=== PATIENT | female | born 1945 | race Caucasian/White ===

== ENCOUNTER 2016-04-10 02:47 | Emergency (ER) | payer MEDICARE ==
[2010-06-17 07:19] VITALS: BMI 37.0
[2016-04-10 03:12] LABS: APPEARANCE CLEAR (CLEAR); BILIRUBIN NEGATIVE (NEGATIVE); COLOR YELLOW (YELLOW); GLUCOSE NEGATIVE (NEGATIVE); KETONE NEGATIVE (NEGATIVE); LEUKOCYTE ESTERASE NEGATIVE (NEGATIVE); NITRITE NEGATIVE (NEGATIVE); PROTEIN NEGATIVE (NEGATIVE); UROBILINOGEN NORMAL (NORMAL)
[2016-04-10 03:31] LABS: BASOPHILS 0.8 % (0.0-2.0); EOSINOPHILS 6.6 % (0-7); HEMATOCRIT 35.5 % (36.0-48.0); HEMOGLOBIN 11.3 g/dL (12-16); IMMATURE GRANULOCYTES 0.2 % (0-5); LYMPHOCYTES 39.6 % (15-50); MCH 27.3 pg (26.0-34.0); MCHC 31.8 g/dL (31.0-37.0); MCV 85.7 fL (80.0-100.0); MEAN PLATELET VOLUME 10.3 fL (7.4-10.4); MONOCYTES 5.2 % (2-11); NEUTROPHILS 47.6 % (40-80); PLATELET COUNT 295 10x3/uL (130-400); RBC 4.14 10x6/uL (4.00-5.40); RDW 14.5 % (11.5-14.5); WBC 10.5 10x3/uL (4.8-10.8)
[2016-04-10 03:49] LABS: ALBUMIN 3.8 g/dL (3.4-5.0); ANION GAP 16.9 mmol/L (8-16); BILIRUBIN - TOTAL 0.5 mg/dL (0.2-1.3); CALCIUM 9.3 mg/dL (8.5-10.1); CARBON DIOXIDE 25.2 mmol/L (21.0-32.0); CREATININE - SERUM 1.2 mg/dL (0.6-1.3); POTASSIUM - SERUM 4.1 mmol/L (3.5-5.1)
== END 2016-04-10 05:14 | disposition home or self-care (01) ==
LOC: D.ER 02:47
PROVIDERS: Emergency Medicine
DX: M54.9 Dorsalgia, unspecified (principal); E11.9 Type 2 diabetes mellitus without complications; I10 Essential (primary) hypertension; K21.9 Gastro-esophageal reflux disease without esophagitis

== ENCOUNTER → 2016-06-15 19:21 | Outpatient (CLI) | payer MEDICARE ==
[2010-06-17 07:19] VITALS: BMI 37.0
== END | disposition home or self-care (01) ==
LOC: D.LABREF 19:21
DX: R53.81 Other malaise (principal); G62.9 Polyneuropathy, unspecified

== ENCOUNTER → 2016-08-03 18:47 | Outpatient (CLI) | payer MEDICARE ==
[2010-06-17 07:19] VITALS: BMI 37.0
[2016-08-05 07:26] LABS: T3 - FREE 3.1 pg/mL (2.0-4.4)
== END | disposition home or self-care (01) ==
LOC: D.LABREF 18:47
PROVIDERS: Family Medicine
DX: M06.9 Rheumatoid arthritis, unspecified (principal); E03.9 Hypothyroidism, unspecified; D51.0 Vitamin B12 deficiency anemia due to intrinsic factor deficiency; T45.2X1A Poisoning by vitamins, accidental (unintentional), initial encounter

== ENCOUNTER → 2016-11-03 17:19 | Outpatient (CLI) | payer MEDICARE ==
[2010-06-17 07:19] VITALS: BMI 37.0
== END | disposition home or self-care (01) ==
LOC: D.LABREF 17:19
DX: D51.0 Vitamin B12 deficiency anemia due to intrinsic factor deficiency (principal)

== ENCOUNTER 2018-09-26 08:08 | Emergency (ER) | payer MEDICARE ==
[~2018-09-26] VITALS: Ht 157.5 cm; Wt 90.7 kg
[2018-09-26 08:19] VITALS: Ht 157.5 cm; Wt 90.7 kg
[2018-09-26] MEDS ORDERED: PLAVIX75 MG PO (08:22)
[2018-09-26] MEDS ORDERED: LISINOPRIL5 MG PO (08:22)
[2018-09-26] MEDS ORDERED: METOPROLOL TART25 MG PO (08:23)
[2018-09-26] MEDS ORDERED: PROTONIX40 MG PO (08:23)
[2018-09-26] MEDS ORDERED: ULTRAM50 MG PO (08:34)
[2018-09-26] MEDS ORDERED: CELEBREX 100 M100 MG PO (09:43)
[2018-09-26 09:58] VITALS: BP 155/61
== END 2018-09-26 09:49 | disposition home or self-care (01) ==
LOC: D.ER 08:08
DX: Z87.39 Personal history of other diseases of the musculoskeletal system and connective tissue (principal); S39.012A Strain of muscle, fascia and tendon of lower back, initial encounter; X58.XXXA Exposure to other specified factors, initial encounter; Y93.89 Activity, other specified; Y92.89 Other specified places as the place of occurrence of the external cause; M54.31 Sciatica, right side